=== PATIENT | male | born 2000 | race Caucasian/White ===

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

== ENCOUNTER → 2021-01-28 15:42 | Outpatient (BNVA) | payer BC, SELFPAY | PROVIDERS: Family Provider Family Medicine; PCP Family Medicine; Referring Provider Family Medicine; Visit Provider Dermatology | DX: Z01.89 Encounter for other specified special examinations (principal) | CPT/HCPCS: 87220 ==

== ENCOUNTER 2021-06-07 19:00 | Emergency (ER) | payer OTHER, BC, SELFPAY ==
--- NOTE | 2021-06-07 19:10 | XRR_ITS ---
PROCEDURE INFORMATION: Exam: XR Right Hand Exam date and time: 06/07/2021 7:10 PM Age: 20 years old Clinical indication: Injury or trauma; Other: Cut on RT thumb; Work related; Laceration; Hand; Right; Additional info: Thumb injury TECHNIQUE: Imaging protocol: XR Right hand. Views: 3 or more views. COMPARISON: No relevant prior studies available. FINDINGS: Bones/joints: Normal. Soft tissues: Normal. XR/XR hand RT min 3V* [id number] IMPRESSION: No acute findings.
[2021-06-07 19:30] VITALS: BP 158/80; PULSE 90; RESP 18; TEMP 36.7; O2SAT 100; BMI 28.1
== END 2021-06-07 23:00 | disposition left against medical advice (07) ==
PROVIDERS: Emergency Provider Family Medicine; PCP Family Medicine
DX: Z53.21 Procedure and treatment not carried out due to patient leaving prior to being seen by health care provider (principal)
CPT/HCPCS: 73130

== ENCOUNTER → 2022-05-18 08:29 | Outpatient (BNVA) | payer OTHER, SELFPAY | PROVIDERS: PCP Family Medicine; Visit Provider Clinical Nurse Specialist Adult Health | DX: J02.9 Acute pharyngitis, unspecified (principal) | CPT/HCPCS: 87400; 87880 ==

== ENCOUNTER 2022-06-16 19:57 | Emergency (ER) | payer OTHER, BC, SELFPAY ==
[2022-06-16 19:59] VITALS: BP 162/84; PULSE 160; RESP 28; TEMP 36.6; O2SAT 100; BMI 26.5
--- NOTE | 2022-06-16 20:24 | ECG_ITS ---
[facility] Test Date: 2022-06-16 Pat Name: Codey Kraus Department: Room: Gender: Male Peanut Cleaner: : 2000 Requested By: Reilly Greer Order Number: [id number] Smith MD: Yosvany Cabello M.D. Measurements Intervals [place] Rate: 142 P: 76 MA: 123 QRS: 95 QRSD: 97 T: 62 QT: 280 QTc: 432 Interpretive Statements SINUS TACHYCARDIA, POSSIBLE ATRIAL FLUTTER BORDERLINE RIGHT AXIS DEVIATION [QRS AXIS > 90] No previous ECG available for comparison Electronically Signed On 06-17-2022 23:27:50 MIXING AND MOLDING MACHINE OPERATOR by Yosvany Cabello M.D. [id number]
--- NOTE | 2022-06-16 20:24 | XRR_ITS ---
PROCEDURE INFORMATION: Exam: XR Chest Exam date and time: 06/16/2022 8:34 PM Age: 21 years old Clinical indication: Other: Chest pain/ abdomen pain; Additional info: Cp/ abdomen pain beginning today TECHNIQUE: Imaging protocol: Radiologic exam of the chest. Views: 1 view. COMPARISON: CR XR chest 1V [id number] 03/10/2018 4:01 PM FINDINGS: Lungs: Unremarkable. No consolidation. Pleural spaces: Unremarkable. No pleural effusion. No pneumothorax. Heart/Mediastinum: Unremarkable. No cardiomegaly. Bones/joints: Unremarkable. XR/XR chest 1V portable [id number] IMPRESSION: No acute findings.
--- NOTE | 2022-06-16 20:26 | W.ED.CHESTPA ---
HPI - Chest Pain General: Chief Complaint: Chest Pain Stated Complaint: Chest Pain Time Seen by Provider: 06/16/22 20:12 Source: patient and family Mode of arrival: ambulatory Limitations: no limitations History of Present Illness: This patient was brought to the emergency department accompanied by his mother. He states that he got into a verbal altercation with his father and became quite upset. He states that following that episode he felt like his chest was heavy and he felt like he had numbness in his face and his hands and felt very uncomfortable. He felt like he could not catch his breath at times and then felt very lightheaded and dizzy. He states he his mother attempted to calm him down and he had very minimal improvement and then his symptoms began again very similar to the initial episode and have continued since that time. He is unclear or unaware of the weather he has had a history of prior episodes. He denies street drug use, caffeine use, nicotine use. He denies alcohol use. He he does have a positive family history of hypercholesterolemia and hypertension and he has been told that he has elevated blood pressure in the past. He does not take any current medications. He denies any focal weakness, difficulty with speech etc. MD complaint: chest discomfort Exacerbating factors: stress Associated symptoms: Reports dyspnea; Deny abdominal pain, fever(s), nausea or vomiting Review of Systems Const: Denies: fever(s) or chills ENMT: Denies: throat pain or odynophagia Card: Reports: lightheadedness Resp: Reports: dyspnea; Denies: productive cough, non-productive cough, wheezing or stridor GI: Denies: abdominal pain, nausea or vomiting : Denies: difficulty urinating or dysuria Musc: Denies: neck pain, back pain, extremity pain or extremity swelling Skin/Breast: Denies: rash Neuro: Reports: numbness in extremities and dizziness; Denies: headache(s) or weakness in extremities Psych: Reports: anxiety PFSH ED PFSH: Medical History Collapsed lung hx of: collapsed lung on right History of fracture of rib Social History Smoking and tobacco status: current every day smoker Alcohol intake: never History of recent travel: No Physical Exam Narrative: EXAM NARRATIVE: Healthy-appearing male who answers questions and extreme detail but with somewhat halting speech during that process. He is generally goal-directed in his answers however. Const: COMMON NORMALS: average body habitus, patient oriented x3 and alert GENERAL APPEARANCE: anxious ORIENTATION/CONSCIOUSNESS: Yes awake HENMT: COMMON NORMALS: normocephalic, atraumatic, Normal nasal mucous membranes and turbinates present and moist oral mucous membranes HEAD & SCALP: normocephalic and atraumatic NOSE: Normal nasal mucous membranes and turbinates present Eye: COMMON NORMALS: Equal, round and reactive pupils present and EOMs intact bilaterally PUPIL: Yes Equal, round and reactive pupils present Neck/C-Spine: COMMON NORMALS: full ROM, Thyroid normal and No carotid bruits THYROID: Thyroid normal Chest: COMMONS NORMALS: normal inspection of the chest and normal palpation of entire chest wall Resp: COMMON NORMALS: normal respiratory effort, No retractions, No use of accessory muscles and clear to auscultation bilaterally AUSCULTATION: clear to auscultation bilaterally Cardio: COMMON NORMALS: regular rate, regular rhythm, No murmurs present (Cardio) and Peripheral pulses 2+ throughout RATE: regular rate and tachycardic RHYTHM: regular rhythm PERIPHERAL PULSES: Peripheral pulses 2+ throughout GI: COMMON NORMALS: Normal to inspection, nondistended, normoactive bowel sounds present, Soft to palpation and non-tender PALPATION: Yes Soft to palpation : COMMON NORMALS: Yes no CVA tenderness BLADDER/KIDNEY EXAM: Yes no CVA tenderness Back/Pelvis: COMMON NORMALS: no CVA tenderness, thoracic and lumbar spine normal to inspection, no thoracic nor lumbar tenderness and straight leg raise negative bilaterally Extremity: COMMON NORMALS: normal to inspection, full ROM, capillary refill normal, no calf tenderness and no pedal edema Neuro: COMMON NORMALS: patient oriented x3, moves all extremities, no focal motor deficits and no sensory deficits noted SENSORIUM/ORIENTATION: Yes alert Psych: COMMON NORMALS: mental status grossly normal and Normal thought process present MOOD & AFFECT: Yes anxious THOUGHT PROCESS: Normal thought process present ATTENTION/CONCENTRATION: Yes attention grossly intact INSIGHT: Fair insight present (Psych) Skin: COMMON NORMALS: no rashes or lesions noted, no wounds and turgor normal GENERAL SKIN EXAM: no rashes or lesions noted and turgor normal Course Reevaluation(s): Reevaluation #1: Patient's heart rate is ranging low 90s high 90s to just over 100 in sinus rhythm without any evidence of arrhythmias etc. He subjectively feels at his baseline. We spent some time discussing likely etiology of his presentation and that there is no evidence at this time of any ongoing worrisome condition. Both he and his mother were appreciative of care and is stable to be discharged at this time. Time: 21:55 Vital Signs: Vital signs: Vital Signs Temperature 97.8 F 06/16/22 19:59 Pulse Rate 105 H 06/16/22 21:08 Respiratory Rate 16 06/16/22 21:08 Blood Pressure 117/72 06/16/22 21:08 Pulse Oximetry 99 06/16/22 21:08 Oxygen Delivery Me thod 06/16/22 19:59 MDM - Chest Pain Medical Decision Making This patient presented to our emergency department with narrow complex tachycardia and associated external upset after an argument with his father. He had concomitant carpopedal spasm, tingling in extremities and face in addition to his tachycardia. There was no history or evidence of stimulants, street drugs etc. that might of contributed to his presentation. His clinical examination was nonfocal did not suggest other conditions such as SAMPLE PATTERNMAKER related etc. at the time of his presentation. His work-up in the emergency department was negative for anything to suggest thyroid dysfunction, pneumothorax, arrhythmia etc. He responded well to a single dose of anxiolytic and observation in the emergency department. He is findings are strongly supportive an acute panic attack with associated tachycardia carpopedal spasm etc. This was all discussed in great detail with the patient as well as his mother who was present. We discussed likely precipitating events and possible strategies to reduce stress in the future. Stable at this time for discharge. Lab Data I reviewed the patient's lab results. 06/16/22 20:30 06/16/22 20:30 Radiology Impressions Chest X-Ray 06/16/22 20:24 IMPRESSION: No acute findings. Laboratory Results WBC 11.2 10^3/uL (4.0-10.0) H 06/16/22 20:30 RBC 6.31 10^6/uL (4.1-5.3) H 06/16/22 20:30 Hgb 16.5 g/dL (11.7-16.6) 06/16/22 20:30 Hct 51.8 % (42.0-52.0) 06/16/22 20:30 MCV 82.1 fl (80-94) 06/16/22 20: MCH 26.1 pg (28.0-34.0) L 06/16/22 20: MCHC 31.9 g/dL (30.0-36.0) 06/16/22 20: RDW 15.3 % (12.1-15.1) H 06/16/22 20: Plt Count 284 10^3/cmm (130-400) 06/16/22 20:30 MPV 9.8 fL (7.4-10.4) 06/16/22 20: Neut % (Auto) 59.5 % 06/16/22 20: Lymph % (Auto) 31.6 % 06/16/22 20: [place] % (Auto) 6.2 % 06/16/22 20: Eos % (Auto) 1.8 % 06/16/22 20: Baso % (Auto) 0.6 % 06/16/22 20:30 Neut # (Auto) 6.64 10^3/uL (1.8-7.7) 06/16/22 20: Lymph # (Auto) 3.5 10^3/uL (0.8-4.8) 06/16/22 20: Hunt # (Auto) 0.7 10^3/uL (0.2-0.9) 06/16/22 20:30 Eos # (Auto) 0.2 10^3/uL (0.0-0.8) 06/16/22 20: Baso # (Auto) 0.1 10^3/uL (0.0-0.1) 06/16/22 20:30 Nucleated RBC % (auto) 0 % 06/16/22: Nucleated RBCs # 0.0 /100WBC 06/16/22 20: Sodium 141 mmol/L (136-145) 06/16/22 20:30 Potassium 3.5 mmol/L (3.5-5.1) 06/16/22 20:30 Chloride 103 mmol/L (98-107) 06/16/22 20: Carbon Dioxide 21 mmol/L (22-29) L 06/16/22 20:30 Anion Gap 20.5 (5-19) H 06/16/22 20:30 BUN 12 mg/dL (6-20) 06/16/22 20:30 Creatinine 1.0 mg/dL (0.7-1.2) 06/16/22 20:30 GFR Calculation 94.3 mL/min (90-130) 06/16/22 20:30 Glucose 121 mg/dL (65-115) H 06/16/22 20:30 Calculated Osmolality 293 mOsm/kg (285-295) 06/16/22 20:30 Calcium 9.6 mg/dL (8.5-10.5) 06/16/22 20:30 TSH 3.35 uIU/mL (0.27-4.20) 06/16/22 20:30 EKG Data EKG 1: I personally reviewed and interpreted this EKG as follows: Interpretation: Initial EKG shows a ventricular rate of 142 bpm with a normal MT interval, QRS duration, QTc interval. Normal axes. He has narrow complex tachycardia consistent with likely sinus tachycardia. No acute ischemic changes noted. Discharge Plan Discharge Patient Disposition: Home Clinical Impression: Acute anxiety Condition: Stable Prescriptions: No Action lidocaine HCl 10 mg/mL (1 %) solution 10 mg SUBCUT ONCE Qty: 1 0RF neomycin-polymyxin B-dexameth [Maxitrol] 3.5mg/mL-10,000 unit/mL-0.1 % drops,suspension 2 drp ophthalmic (eye) QID 7 Days Qty: 5 0RF Rx Instructions: Route-Ears to treat Otits Externa Discharge Orders: Discharge ED (Routine); Ordered 06/16/22 Ordered By: Reilly Greer Referrals: Ricky Meléndez MD [Primary Care Provider] - Discharge Diet: Usual diet Discharge Activity: Increase activity as tolerated Patient Instructions: Anxiety (ED), Opioid Safety, Pain Management Activity Restrictions/Additional Instructions: As we discussed while you are in the emergency department your presentation and findings this evening did not represent a life-threatening or other worrisome condition that requires further admission or observation. Most consistent with anxiety reaction with usual symptoms that we see in these kind of conditions. It is important to be aware that emotions can cause many physical symptoms and attempt to remove yourself from any stress provoking situations as soon as possible. If you develop any new concerning persistent or worsening symptoms return to this emergency department for reevaluation. Coding Level of Care Code ED Special Procedures Technologist for Chg Fwd Exam Comprehensive
[2022-06-16] MEDS: LORazepam 2 mg/mL INJ 1 mL 1 MG IVP (20:41)
[2022-06-16 21:01] LABS: Basophils # 0.1 10^3/uL (0.0-0.1); Basophils % 0.6 %; Eosinophils # 0.2 10^3/uL (0.0-0.8); Eosinophils % 1.8 %; Hematocrit 51.8 % (42.0-52.0); Hemoglobin 16.5 g/dL (11.7-16.6); Lymphocytes # 3.5 10^3/uL (0.8-4.8); Lymphocytes % 31.6 %; Mean Corpuscular HGB Conc 31.9 g/dL (30.0-36.0); Mean Corpuscular Hemoglobin 26.1 pg (28.0-34.0); Mean Corpuscular Volume 82.1 fl (80-94); Mean Platelet Volume 9.8 fL (7.4-10.4); Monocytes # 0.7 10^3/uL (0.2-0.9); Monocytes % 6.2 %; Neutrophils # 6.64 10^3/uL (1.8-7.7); Neutrophils % 59.5 %; Nucleated Red Blood Cells % 0 %; Platelet Count 284 10^3/cmm (130-400); Red Blood Count 6.31 10^6/uL (4.1-5.3); Red Cell Distribution Width 15.3 % (12.1-15.1); White Blood Count 11.2 10^3/uL (4.0-10.0)
[2022-06-16 21:06] LABS: Anion Gap 20.5 (5-19); Blood Urea Nitrogen 12 mg/dL (6-20); Calcium 9.6 mg/dL (8.5-10.5); Carbon Dioxide 21 mmol/L (22-29); Chloride 103 mmol/L (98-107); Glomerular Filtration Rate 94.3 mL/min (90-130); Glucose 121 mg/dL (65-115); Osmolality Calculated 293 mOsm/kg (285-295); Potassium 3.5 mmol/L (3.5-5.1); Sodium 141 mmol/L (136-145); Thyroid Stimulating Hormone 3.35 uIU/mL (0.27-4.20)
[2022-06-16 21:08] VITALS: BP 117/72; PULSE 105; RESP 16; O2SAT 99
[2022-06-16 22:08] VITALS: BP 128/84; PULSE 98; RESP 16
== END 2022-06-16 22:10 | disposition home or self-care (01) ==
PROVIDERS: Emergency Provider Emergency Medicine; PCP Family Medicine
DX: F41.9 Anxiety disorder, unspecified (principal)
CPT/HCPCS: 71045; 80048; 84443; 85025; 93005; 96374; 99285; J2060

== ENCOUNTER 2022-10-14 09:06 | Outpatient (CLI) | payer OTHER, BC, SELFPAY ==
--- NOTE | 2022-10-14 09:13 | XR_ITS ---
WS: [id number] Exam: XR thoracic spine 3V* [id number] Date/Time of Exam: 10/14/2022 9:20 AM Reason For Exam: pain T8/T9 Findings: In the AP projection, the thoracic spine is straight. In the lateral projection, the thoracic curve is well maintained. The intervertebral disc spaces are intact. No fractures or anomalies of the tho racic spine are noted. XR/XR thoracic spine 3V* [id number] IMPRESSION: Negative thoracic spine.
== END 2022-10-14 09:07 | disposition home or self-care (01) ==
PROVIDERS: PCP Family Medicine; Visit Provider Family Medicine
DX: M54.6 Pain in thoracic spine (principal)
CPT/HCPCS: 72072

== ENCOUNTER 2023-01-31 17:41 | Emergency (ER) | payer OTHER, BC, SELFPAY ==
[2023-01-31 17:56] VITALS: BP 122/77; PULSE 95; RESP 16; TEMP 36.6; O2SAT 98; BMI 25.1
--- NOTE | 2023-01-31 19:01 | ED_ITS ---
HPI - Abdominal Pain General: Chief Complaint: Abdominal Pain Stated Complaint: abd pain, low back pain Time Seen by Provider: 01/31/23 18:42 History of Present Illness: 23-year-old male presents emergency room with parent due to lower abdominal pain that started few hours ago after returning from work. Patient described the pain as sharp sensation mostly left lower quadrant right lower quadrant rating to his made lower back. Facial pain is 8 out of 10. Patient reveals some dark stool today. Patient denies any hematuria, dysuria, nausea, vomiting, diarrhea or bloody stool. No recent trauma or fall. No numbness or tingling to lower extremity. Is any bowel or bowel dysfunction. Associated Symptoms: Denies coffee ground emesis, dysuria, hematuria, hematemesis, nausea and vomiting Review of Systems General: Reports: 10 or more systems reviewed and unremarkable except in HPI and below GI: Reports: abdominal pain; Denies: nausea, vomiting, hematemesis, coffee ground emesis or dysphagia : Denies: flank pain, difficulty urinating, dysuria, urinary frequency, urinary urgency, urinary hesitancy, urinary dribbling, difficulty starting urination, change in urine stream, nocturia, oliguria, urinary incontinence, hematuria, genital pain or genital lesions PFSH ED PFSH: Medical History Collapsed lung hx of: collapsed lung on right History of fracture of rib Social History Smoking and tobacco status: current every day smoker Alcohol intake: never Substance/Drug Use: never Physical Exam Const: COMMON NORMALS: no acute distress, average body habitus, patient oriented x3, no limitations, healthy appearing, alert and well nourished Chest: COMMONS NORMALS: normal inspection of the chest, normal palpation of entire chest wall, normal inspection of the breasts and normal palpation of the breasts Breast/axilla inspection: Yes normal inspection of the breasts BREAST/AXILLA PALPATION: Yes normal palpation of the breasts Resp: COMMON NORMALS: normal respiratory effort, No retractions, No use of accessory muscles, clear to auscultation bilaterally and percussion normal AUSCULTATION: clear to auscultation bilaterally PERCUSSION: percussion normal GI: COMMON NORMALS: Soft to palpation INSPECTION: Yes normal to inspection, No abdominal wall ecchymosis and No Abdominal wall edema AUSCULTATION: Yes normoactive bowel sounds PALPATION: Yes Soft to palpation, Yes Tenderness to palpation present (GI) Details: LLQ and RLQ, No Hepatosplenomegaly present, No Hepatomegaly present, No Splenomegaly present, No Hernia present and No Pulsatile mass present : COMMON NORMALS: Yes no CVA tenderness BLADDER/KIDNEY EXAM: Yes no CVA tenderness Back/Pelvis: COMMON NORMALS: no CVA tenderness, thoracic and lumbar spine normal to inspection, no thoracic nor lumbar tenderness, thoraco-lumbar ROM normal and straight leg raise negative bilaterally Extremity: COMMON NORMALS: normal to inspection, full ROM, capillary refill normal, no joint enlargement, no clubbing, cyanosis or edema, no calf tenderness and no pedal edema Neuro: COMMON NORMALS: patient oriented x3 SENSORIUM/ORIENTATION: Yes alert Skin: COMMON NORMALS: no rashes or lesions noted, no wounds, turgor normal, no jaundice, no petechiae and no mottling GENERAL SKIN EXAM: no rashes or lesions noted and turgor normal Course Vital Signs: Vital signs: Vital Signs Temperature 97.9 F 01/31/23 17:56 Pulse Rate 72 01/31/23 20:30 Respiratory Rate 16 01/31/23 20:30 Blood Pressure 144/88 01/31/23 20:30 Pulse Oximetry 99 01/31/23 20:30 Oxygen Delivery Me thod Room Air 01/31/23 20:30 MDM - Abdominal Pain Medical Decision Making Patient made comfortable emergency room and had extensive work-up done including CBC, CMP, lipase UA and a CAT scan. I was able to discuss the CT finding and lab work with patient and family. Differential Diagnosis Likely abdominal pain, acute appendicitis, calculus of kidney, constipation, diverticulitis, gastroenteritis, pancreatitis and small bowel obstruction; Unlikely endometriosis Lab Data 01/31/23 19:13 01/31/23 19:13 Labs/Radiology: Radiology Impressions Abdomen/Pelvis CT 01/31/23 20:[address]: [address] evidence of acute intra-abdominal or pelvic pathology. 2. Additional findings, as above. Laboratory Results WBC 9.71 10^3/uL (3.29-11.43) 01/31/23 19:13 RBC 5.48 10^6/uL (3.85-5.65) 01/31/23 19:13 Hgb 15.40 g/dL (11.27-16.99) 01/31/23 19:13 Hct 48.2 % (37-53) 01/31/23 19:13 MCV 88.0 fl (82-101) 01/31/23 19:13 MCH 28.1 pg (27-33) 01/31/23 19:13 MCHC 32.0 g/dL (30-55) 01/31/23 19:13 RDW 13.8 % (12.1-15.1) 01/31/23 19:13 Plt Count 229 10^3/cmm (157-399) 01/31/23 19:13 MPV 9.3 fL (7.4-10.4) 01/31/23 19:13 Neut % (Auto) 71.7 % 01/31/23 19:13 Lymph % (Auto) 18.3 % 01/31/23 19:13 [place] % (Auto) 6.7 % 01/31/23 19:13 Eos % (Auto) 2.4 % 01/31/23 19:13 Baso % (Auto) 0.6 % 01/31/23 19:13 Neut # (Auto) 6.96 10^3/uL (1.8-7.7) 01/31/23 19:13 Lymph # (Auto) 1.8 10^3/uL (0.8-4.8) 01/31/23 19:13 [place] # (Auto) 0.7 10^3/uL (0.2-0.9) 01/31/23 19:13 Eos # (Auto) 0.2 10^3/uL (0.0-0.8) 01/31/23 19:13 Baso # (Auto) 0.1 10^3/uL (0.0-0.1) 01/31/23 19:13 Nucleated RBC % (auto) 0 % 01/31/23 19:13 Nucleated RBCs # 0.0 /100WBC 01/31/23 19:13 Sodium 140 mmol/L (136-145) 01/31/23 19:13 Potassium 3.7 mmol/L (3.5-5.1) 01/31/23 19:13 Chloride 101 mmol/L (98-107) 01/31/23 19:13 Carbon Dioxide 27 mmol/L (22-29) 01/31/23 19:13 Anion Gap 15.7 (5-19) 01/31/23 19:13 BUN 13 mg/dL (6-20) 01/31/23 19:13 Creatinine 1.1 mg/dL (0.7-1.2) 01/31/23 19:13 GFR Calculation 83.7 mL/min (90-130) L 01/31/23 19:13 Glucose 88 mg/dL (65-115) 01/31/23 19:13 Calculated Osmolality 290 mOsm/kg (285-295) 01/31/23 19:13 Calcium 9.0 mg/dL (8.5-10.5) 01/31/23 19:13 Total Bilirubin 0.4 mg/dL (0.15-1.2) 01/31/23 19:13 AST 45 U/L (0-40) H 01/31/23 19:13 ALT 59 U/L (0-41) H 01/31/23 19:13 Alkaline Phosphatase 96 U/L (40-130) 01/31/23 19:13 Total Protein 7.8 g/dL (6.6-8.7) 01/31/23 19:13 Albumin 4.6 g/dL (3.5-5.2) 01/31/23 19:13 Globulin 3.2 g/dL (1.3-4.6) 01/31/23 19:13 Lipase 17 U/L (13-60) 01/31/23 19:13 Urine Color Yellow (Yellow) 01/31/23 19:13 Urine Appearance Clear (CLEAR) 01/31/23 19:13 Urine pH 5 (5-7) 01/31/23 19:13 Ur Specific [place] 1.010 (1.005-1.030) 01/31/23 19:13 Urine Protein Trace (Negative) 01/31/23 19:13 Urine Glucose (UA) Norm (Normal) 01/31/23 19:13 Urine Ketones Negative (Negative) 01/31/23 19:13 Urine Blood Neg (Negative) 01/31/23 19:13 Urine Nitrate Negative (Negative) 01/31/23 19:13 Urine Bilirubin Neg (Negative) 01/31/23 19:13 Urine Urobilinogen Norm mg/dL (Negative) 01/31/23 19:13 Ur Leukocyte Esterase Negative (Negative) 01/31/23 19:13 Urine RBC 0-4 /hpf (0-2) H 01/31/23 19:13 Urine WBC None /hpf (0-5) 01/31/23 19:13 Ur Squamous Epith Cells None /hpf (0-5) 01/31/23 19:13 Amorphous Sediment Not Reportable 01/31/23 19:13 Urine Bacteria Trace /hpf (NONE) 01/31/23 19:13 All radiology interpretation(s) finalized by discharge Discharge Plan Discharge Patient Disposition: Home Clinical Impression: Abdominal pain, Transaminitis Condition: Stable Prescriptions: New tramadol 50 mg tablet 50 mg PO BID PRN (Reason: pain) Qty: 10 0RF promethazine 25 mg tablet 25 mg PO TID PRN (Reason: nausea and vomiting) Qty: 14 0RF No Action lidocaine HCl 10 mg/mL (1 %) solution 10 mg SUBCUT ONCE Qty: 1 0RF diclofenac sodium 75 mg tablet,delayed release (DR/EC) 75 mg PO BID PRN (Reason: pain) Qty: 30 0RF Rx Instructions: Instead of ibuprofen form back pain Discharge Orders: Discharge ED (Routine); Ordered 01/31/23 Ordered By: Abdoulaye Adam Referrals: Jay Sow DO [Physician] - 4-7 days Ricky Meléndez MD [Primary Care Provider] - Discharge Diet: Advance as tolerated Discharge Activity: Resume usual activity Patient Instructions: Abdominal Pain (ED), Opioid Safety, Pain Management Coding Level of Care Code ED Securities Consultant for Chg Jacob
[2023-01-31 19:29] VITALS: BP 117/75; PULSE 70; RESP 18; O2SAT 95
[2023-01-31 19:32] VITALS: RESP 18; O2SAT 100
[2023-01-31] MEDS: sodium chloride 0.9% 1,000 ML 999 ML IV (19:32)
[2023-01-31] MEDS: morphine 4 mg/mL SDV 1 mL IVP (19:32)
[2023-01-31] MEDS: ondansetron 2 mg/ML SDV 2 mL 4 MG IVP (19:32)
[2023-01-31 19:48] LABS: Basophils # 0.1 10^3/uL (0.0-0.1); Basophils % 0.6 %; Eosinophils # 0.2 10^3/uL (0.0-0.8); Eosinophils % 2.4 %; Hematocrit 48.2 % (37-53); Lymphocytes # 1.8 10^3/uL (0.8-4.8); Lymphocytes % 18.3 %; Mean Corpuscular Hemoglobin 28.1 pg (27-33); Mean Platelet Volume 9.3 fL (7.4-10.4); Monocytes # 0.7 10^3/uL (0.2-0.9); Monocytes % 6.7 %; Neutrophils # 6.96 10^3/uL (1.8-7.7); Neutrophils % 71.7 %; Nucleated Red Blood Cells % 0 %; Platelet Count 229 10^3/cmm (157-399); Red Blood Count 5.48 10^6/uL (3.85-5.65); Red Cell Distribution Width 13.8 % (12.1-15.1); White Blood Count 9.71 10^3/uL (3.29-11.43)
[2023-01-31 19:54] LABS: Add Urine Culture? No; Add Urine Microscopic? YES; Bacteria Urine TRACE /hpf; Bilirubin Urine Neg (Negative); Blood Urine Neg (Negative); Glucose Urine UA Norm (Normal); Ketones Urine Negative (Negative); Leukocyte Esterase Urine Negative (Negative); Nitrate Urine Negative (Negative); Protein Urine Trace (Negative); RBC Urine 0-4 /hpf (0-2); Urine Appearance Clear (CLEAR); Urine Color Yellow (Yellow); Urobilinogen Urine Norm (Negative); pH Urine 5 (5-7)
[2023-01-31 20:00] LABS: Alanine Aminotransferase 59 U/L (0-41); Albumin Level 4.6 g/dL (3.5-5.2); Alkaline Phosphatase 96 U/L (40-130); Anion Gap 15.7 (5-19); Aspartate Amino Transferase 45 U/L (0-40); Blood Urea Nitrogen 13 mg/dL (6-20); Carbon Dioxide 27 mmol/L (22-29); Chloride 101 mmol/L (98-107); Globulin 3.2 g/dL (1.3-4.6); Glomerular Filtration Rate 83.7 mL/min (90-130); Glucose 88 mg/dL (65-115); Lipase 17 U/L (13-60); Osmolality Calculated 290 mOsm/kg (285-295); Potassium 3.7 mmol/L (3.5-5.1); Sodium 140 mmol/L (136-145); Total Bilirubin 0.4 mg/dL (0.15-1.2); Total Protein 7.8 g/dL (6.6-8.7)
--- NOTE | 2023-01-31 20:05 | CTR_ITS ---
PROCEDURE INFORMATION: Exam: CT Abdomen And Pelvis With Contrast Exam date and time: 01/31/2023 8:20 PM Age: 22 years old Clinical indication: Abdominal pain; Localized; Lower; Additional info: Severe abd pain TECHNIQUE: Imaging protocol: Computed tomography of the abdomen and pelvis with contrast. Axial, coronal and sagittal reformatted images were created and reviewed. Radiation optimization: All CT scans at this facility use at least one of these dose optimization techniques: automated exposure control; mA and/or kV adjustment per patient size (includes targeted exams where dose is matched to clinical indication); or iterative reconstruction. Contrast material: OMNI 350; Contrast volume: 100 ml; Contrast route: INTRAVENOUS (IV); REPORTING DATA: Count of CT and Cardiac NM exams in prior 12 months: This patient has received 0 known CTs and 0 known cardiac nuclear medicine studies in the 12 months prior to the current study. COMPARISON: CT Chest/Abdomen/Pelvis w IV* 03/10/2018 3:36 PM RADIATION DOSE METRICS: Total DLP (mGy-cm): 628 FINDINGS: Lungs: Mild linear atelectasis and/or scarring in the right lower lobe. Liver: Unremarkable. Gallbladder and bile ducts: No radiodense gallstones. No biliary ductal dilatation. Pancreas: Unremarkable. Spleen: Unremarkable. Adrenal glands: Normal. No mass. Kidneys and ureters: No mass. No radiodense calculi. No hydronephrosis. Stomach and bowel: No bowel wall thickening. No obstruction. No pneumatosis. Appendix: Normal. Intraperitoneal space: No free fluid. No organized fluid collection. No free air. Vasculature: Unremarkable. No aneurysm. Lymph nodes: Small mesenteric lymph nodes, nonspecific in appearance. No pathologically enlarged lymph nodes. Urinary bladder: Unremarkable as visualized. Reproductive: Unremarkable. Bones/joints: No acute osseous abnormality. Soft tissues: Tiny, fat containing umbilical hernia. CT/CT abdomen pelvis w con* [id number] IMPRESSION: 1. No CT evidence of acute intra-abdominal or pelvic pathology. 2. Additional findings, as above.
[2023-01-31] MEDS: iohexol 350 mg/mL 500 mL Btl (per mL) IV (20:27)
[2023-01-31 20:30] VITALS: BP 144/88; PULSE 72; RESP 16; O2SAT 99
== END 2023-01-31 22:17 | disposition home or self-care (01) ==
PROVIDERS: Emergency Provider Family Medicine; PCP Family Medicine
DX: R10.30 Lower abdominal pain, unspecified (principal); R74.01 Elevation of levels of liver transaminase levels; F17.210 Nicotine dependence, cigarettes, uncomplicated
CPT/HCPCS: 74177; 80053; 81001; 83690; 85025; 96361; 96374; 96375; 99285; J2270; J2405; J7030; Q9967

== ENCOUNTER 2023-05-31 19:22 | Emergency (ER) | payer BC, SELFPAY ==
[2023-05-31 19:23] VITALS: BP 138/89; PULSE 103; RESP 16; TEMP 36.8; O2SAT 100; BMI 28.7
--- NOTE | 2023-05-31 19:25 | ECG_ITS ---
[facility] Test Date: 2023-05-31 Pat Name: Codey Kraus Department: Room: Gender: Male Communications Technologist: : 2000 Requested By: Long Levin Order Number: [id number] Smith MD: Yosvany Cabello M.D. Measurements Intervals [place] Rate: 103 P: 67 AL: 142 QRS: 90 QRSD: 96 T: 42 QT: 321 QTc: 421 Interpretive Statements SINUS TACHYCARDIA Compared to ECG 06/16/2022 20:01:30 No significant changes Electronically Signed On 06-01-2023 11:05:10 ENGINEERING DRAWINGS CHECKER by Yosvany Cabello M.D. [id number] f
--- NOTE | 2023-05-31 19:25 | XRR_ITS ---
PROCEDURE INFORMATION: Exam: XR Chest Exam date and time: 05/31/2023 8:51 PM Age: 22 years old Clinical indication: Chest wall pain; Additional info: Cp TECHNIQUE: Imaging protocol: Radiologic exam of the chest. Views: 1 view. COMPARISON: CR XR chest 1V portable [id number] 06/16/2022 8:34 PM FINDINGS: Lungs: Unremarkable. No consolidation. Pleural spaces: Unremarkable. No pleural effusion. No pneumothorax. Heart/Mediastinum: Unremarkable. No cardiomegaly. Bones/joints: Unremarkable. XR/XR chest 1V portable [id number] IMPRESSION: No acute plain radiographic abnormality. No interval change from 06/16/2022.
[2023-05-31] MEDS: sodium chloride 0.9% 1,000 ML 999 ML IV (20:15)
--- NOTE | 2023-05-31 20:16 | ED_ITS ---
HPI - Chest Pain 2 General: Chief Complaint: Chest Pain Stated Complaint: Chest pain dizzy heart racing Time Seen by Provider: 05/31/23 19:25 Source: patient Mode of arrival: ambulatory Limitations: no limitations History of Present Illness: 22-year-old male states that today start ed to have palpitations been having some dizziness along with cold chills as well. States that this started on his way home from work and worsen when he took a shower. He denies any chest pain denies any shortness of breath states he had some relief of the symptoms he denies any worsening proving factors denies any fevers or known sick contacts. Associated symptoms: Reports palpitations; Deny abdominal pain, dyspnea, fever(s), nausea or vomiting Review of Systems 2 Const: Reports: chills; Denies: fever(s), body aches or change in appetite ENMT: Denies: throat pain or dental pain Card: Reports: chest pain and palpitations Resp: Denies: dyspnea GI: Denies: abdominal pain, nausea, vomiting or diarrhea : Denies: dysuria Musc: Denies: neck pain or back pain Skin/Breast: Denies: rash Neuro: Denies: headache(s) or dizziness PFSH ED 2 PFSH: Medical History Collapsed lung hx of: collapsed lung on right History of fracture of rib Social History Smoking and tobacco/nicotine status: current every day tobacco/nicotine user Alcohol intake: never Substance/Drug Use: never Physical Exam 2 Const: COMMON NORMALS: no acute distress, patient oriented x3 and healthy appearing HENMT: COMMON NORMALS: normocephalic and atraumatic HEAD & SCALP: n ormocephalic and atraumatic Eye: COMMON NORMALS: Equal, round and reactive pupils present and EOMs intact bilaterally PUPIL: Yes Equal, round and reactive pupils present Neck/C-Spine: COMMON NORMALS: full ROM and supple Chest: COMMONS NORMALS: normal inspection of the chest and normal palpation of entire chest wall Resp: COMMON NORMALS: normal respiratory effort, No retractions, No use of accessory muscles and clear to auscultation bilaterally AUSCULTATION: clear to auscultation bilaterally Cardio: COMMON NORMALS: regular rate, regular rhythm and No murmurs present (Cardio) RATE: regular rate RHYTHM: regular rhythm GI: COMMON NORMALS: Normal to inspection, nondistended, normoactive bowel sounds present, Soft to palpation, non-tender and no masses PALPATION: Yes Soft to palpation Extremity: COMMON NORMALS: normal to inspection and full ROM Neuro: COMMON NORMALS: patient oriented x3, moves all extremities and no focal motor deficits Psych: COMMON NORMALS: mental status grossly normal, Normal thought process present and cooperative THOUGHT PROCESS: Normal thought process present Skin: COMMON NORMALS: no rashes or lesions noted and no wounds GENERAL SKIN EXAM: no rashes or lesions noted Course 2 Vital Signs: Vital signs: Vital Signs Temperature 98.3 F 05/31/23 19:23 Pulse Rate 85 05/31/23 21:27 Respiratory Rate 16 05/31/23 19:23 Blood Pressure 142/85 05/31/23 21:04 Pulse Oximetry 99 05/31/23 21:27 Oxygen Delivery Me thod Room Air 05/31/23 21:04 MDM - Chest Pain Medical Decision Making Patient presents for chest pains atypical in nature heart rate here is slowed down to 90 troponins normal he had no shortness of breath or chest pain here he has no signs of pulmonary embolism no recent travel no surgery no history of DVT in the family he is stable for discharge she is follow-up with PCP and return if worsening. Medical Records I reviewed the patient's medical records. Lab Data I reviewed the patient's lab results. 05/31/23 20:11 05/31/23 20:11 Laboratory Results WBC 9.34 10^3/uL (3.29-11.43) 05/31/23 20:11 RBC 5.62 10^6/uL (3.85-5.65) 05/31/23 20:11 Hgb 15.60 g/dL (11.27-16.99) 05/31/23 20:11 Hct 48.7 % (37-53) 05/31/23 20:11 MCV 86.7 fl (82-101) 05/31/23 20:11 MCH 27.8 pg (27-33) 05/31/23 20:11 MCHC 32.0 g/dL (30-55) 05/31/23 20:11 RDW 13.5 % (12.1-15.1) 05/31/23 20:11 Plt Count 278 10^3/cmm (157-399) 05/31/23 20:11 MPV 9.2 fL (7.4-10.4) 05/31/23 20:11 Neut % (Auto) 66.1 % 05/31/23 20:11 Lymph % (Auto) 25.1 % 05/31/23 20:11 [place] % (Auto) 6.0 % 05/31/23 20:11 Eos % (Auto) 2.0 % 05/31/23 20:11 Baso % (Auto) 0.5 % 05/31/23 20:11 Neut # (Auto) 6.17 10^3/uL (1.8-7.7) 05/31/23 20:11 Lymph # (Auto) 2.3 10^3/uL (0.8-4.8) 05/31/23 20:11 [place] # (Auto) 0.6 10^3/uL (0.2-0.9) 05/31/23 20:11 Eos # (Auto) 0.2 10^3/uL (0.0-0.8) 05/31/23 20:11 Baso # (Auto) 0.1 10^3/uL (0.0-0.1) 05/31/23 20:11 Nucleated RBC % (auto) 0 % 05/31/23 20:11 Nucleated RBCs # 0.0 /100WBC 05/31/23 20:11 Sodium 141 mmol/L (136-145) 05/31/23 20:11 Potassium 3.8 mmol/L (3.5-5.1) 05/31/23 20:11 Chloride 105 mmol/L (98-107) 05/31/23 20:11 Carbon Dioxide 24 mmol/L (22-29) 05/31/23 20:11 Anion Gap 15.8 (5-19) 05/31/23 20:11 BUN 8 mg/dL (6-20) 05/31/23 20:11 Creatinine 0.8 mg/dL (0.7-1.2) 05/31/23 20:11 GFR Calculation 120.9 mL/min (90-130) 05/31/23 20:11 Glucose 92 mg/dL (65-115) 05/31/23 20:11 Calculated Osmolality 290 mOsm/kg (285-295) 05/31/23 20:11 Calcium 10.2 mg/dL (8.5-10.5) 05/31/23 20:11 Troponin T Baseline < 6 ng/L (0-15) 05/31/23 20:11 All radiology interpretation(s) finalized by discharge EKG Data EKG 1: I personally reviewed and interpreted this EKG as follows: EKG interpretation date: 05/31/23 EKG interpretation time: 19:28 Interpretation: sinus tach hr [address] or t wave abnormalities qrs 96 qtc 380 Discharge Plan Discharge Patient Disposition: Home Clinical Impression: Chest pain Qualifiers: Chest pain type: unspecified Qualified Code(s): R07.9 - Chest pain, unspecified Condition: Stable Prescriptions: No Action lidocaine HCl 10 mg/mL (1 %) solution 10 mg SUBCUT ONCE Qty: 1 0RF diclofenac sodium 75 mg tablet,delayed release (DR/EC) 75 mg PO BID PRN (Reason: pain) Qty: 30 0RF Rx Instructions: Instead of ibuprofen form back pain tramadol 50 mg tablet 50 mg PO BID PRN (Reason: pain) Qty: 10 0RF promethazine 25 mg tablet 25 mg PO TID PRN (Reason: nausea and vomiting) Qty: 14 0RF Discharge Orders: Discharge ED (Routine); Ordered 05/31/23 Ordered By: Long Levin Referrals: Ricky Meléndez MD [Primary Care Provider] - 1-3 days Discharge Diet: Advance as tolerated Discharge Activity: Resume usual activity Patient Instructions: Chest Pain (ED) Coding Level of Care Code ED Doctor Of Dental Surgery for Chg Jacob
[2023-05-31 20:17] LABS: Basophils # 0.1 10^3/uL (0.0-0.1); Basophils % 0.5 %; Eosinophils # 0.2 10^3/uL (0.0-0.8); Hematocrit 48.7 % (37-53); Lymphocytes # 2.3 10^3/uL (0.8-4.8); Lymphocytes % 25.1 %; Mean Corpuscular Hemoglobin 27.8 pg (27-33); Mean Corpuscular Volume 86.7 fl (82-101); Mean Platelet Volume 9.2 fL (7.4-10.4); Monocytes # 0.6 10^3/uL (0.2-0.9); Neutrophils # 6.17 10^3/uL (1.8-7.7); Neutrophils % 66.1 %; Nucleated Red Blood Cells % 0 %; Platelet Count 278 10^3/cmm (157-399); Red Blood Count 5.62 10^6/uL (3.85-5.65); Red Cell Distribution Width 13.5 % (12.1-15.1); White Blood Count 9.34 10^3/uL (3.29-11.43)
[2023-05-31 20:42] LABS: Anion Gap 15.8 (5-19); Blood Urea Nitrogen 8 mg/dL (6-20); Calcium 10.2 mg/dL (8.5-10.5); Carbon Dioxide 24 mmol/L (22-29); Chloride 105 mmol/L (98-107); Creatinine Clr Calc Pharmacy 164.0675; Glomerular Filtration Rate 120.9 mL/min (90-130); Glucose 92 mg/dL (65-115); Osmolality Calculated 290 mOsm/kg (285-295); Potassium 3.8 mmol/L (3.5-5.1); Sodium 141 mmol/L (136-145)
[2023-05-31 21:04] VITALS: BP 142/85; PULSE 93; O2SAT 99
[2023-05-31 21:06] LABS: Troponin(5th) Baseline < 6 ng/L (0-15)
[2023-05-31 21:27] VITALS: PULSE 85; O2SAT 99
== END 2023-05-31 21:29 | disposition home or self-care (01) ==
PROVIDERS: Emergency Provider Emergency Medicine; PCP Family Medicine
DX: R07.89 Other chest pain (principal)
CPT/HCPCS: 71045; 80048; 84484; 85025; 93005; 99285; J7030

== ENCOUNTER 2023-09-28 06:00 | Outpatient (CLI) | payer BC, SELFPAY | END 2023-09-28 23:59 | disposition home or self-care (01) | LOC: SOT 10-05 11:05 | PROVIDERS: PCP Family Medicine; Visit Provider Student in an Organized Health Care Education/Training Program | DX: Z46.89 Encounter for fitting and adjustment of other specified devices (principal); M20.012 Mallet finger of left finger(s) | CPT/HCPCS: 97760; L3935 ==

== ENCOUNTER → 2023-09-28 08:34 | Outpatient (BNVA) | payer BC, SELFPAY | PROVIDERS: PCP Family Medicine; Visit Provider Physician Assistant | DX: S63.633A Sprain of interphalangeal joint of left middle finger, initial encounter (principal); M79.643 Pain in unspecified hand; X58.XXXA Exposure to other specified factors, initial encounter | CPT/HCPCS: 73130 ==

== ENCOUNTER 2023-12-06 16:20 | Inpatient (IN) | payer BC, SELFPAY ==
[2023-12-06] VITALS (12 sets, daily range): BP systolic 109–149; BP diastolic 54–85; PULSE 78–130; RESP 16–23; TEMP 36.7–37.2; O2SAT 96–100
--- NOTE | 2023-12-06 16:40 | W.ED.PSYCHS ---
HPI - Psych General: Chief Complaint: Psychiatric Symptoms Stated Complaint: possible od, si Time Seen by Provider: 12/06/23 16:34 Source: patient Mode of arrival: ambulatory Limitations: no limitations History of Present Illness: 22-year-old male states that he has been with severe depression states today he took a bottle of ibuprofen roughly an hour before arrival and attempt to kill himself. He is unsure having ibuprofen that he had taken. He denies any abdominal pain or vomiting currently. He has had no previous suicide attempts in the past. Associated symptoms: Reports depression and suicidal ideation Review of Systems Const: Denies: fever(s), chills, body aches or change in appetite ENMT: Denies: throat pain or dental pain Card: Denies: chest pain Resp: Denies: dyspnea GI: Denies: abdominal pain, nausea, vomiting or diarrhea Musc: Denies: neck pain or back pain Skin/Breast: Denies: rash Neuro: Denies: headache(s) Psych: Reports: depression and suicidal ideation [facility] ED PFSH: Medical History Collapsed lung hx of: collapsed lung on right History of fracture of rib Social History Smoking and tobacco/nicotine status: never used tobacco/nicotine Second hand smoke exposure: No Alcohol intake: never Substance/Drug Use: never Physical Exam Const: COMMON NORMALS: no acute distress, patient oriented x3 and healthy appearing HENMT: COMMON NORMALS: normocephalic and atraumatic HEAD & SCALP: normocephalic and atraumatic Neck/C-Spine: COMMON NORMALS: full ROM and supple Chest: COMMONS NORMALS: normal inspection of the chest Resp: COMMON NORMALS: normal respiratory effort Cardio: RATE: tachycardic Extremity: COMMON NORMALS: normal to inspection and full ROM Neuro: COMMON NORMALS: patient oriented x3, moves all extremities and no focal motor deficits Psych: COMMON NORMALS: mental status grossly normal, Normal thought process present and cooperative THOUGHT PROCESS: Normal thought process present THOUGHT CONTENT: Yes Suicidality present Skin: COMMON NORMALS: no rashes or lesions noted and no wounds GENERAL SKIN EXAM: no rashes or lesions noted Course Vital Signs: Vital signs: Vital Signs Temperature 99.0 F 12/06/23 16:27 Pulse Rate 111 H 12/06/23 19:00 Respiratory Rate 23 H 12/06/23 17:36 Blood Pressure 143/74 12/06/23 19:00 Pulse Oximetry 97 12/06/23 19:00 Oxygen Delivery Me thod Room Air 12/06/23 19:00 MDM - Psych Medical Decision Making Patient presents here with suicidal ideation with a overdose attempt on ibuprofen patient is medically cleared blood works normal no signs of lethal dose I did speak to the psychiatrist and will admit. Medical Records I reviewed the patient's medical records. Lab Data I reviewed the patient's lab results. 12/06/23 17:48 12/06/23 17:48 Laboratory Results WBC 12.95 10^3/uL (3.29-11.43) H 12/06/23 17:48 RBC 5.32 10^6/uL (3.85-5.65) 12/06/23 17:48 Hgb 14.60 g/dL (11.27-16.99) 12/06/23 17:48 Hct 45.5 % (37-53) 12/06/23 17:48 MCV 85.5 fl (82-101) 12/06/23 17:48 MCH 27.4 pg (27-33) 12/06/23 17:48 MCHC 32.1 g/dL (30-55) 12/06/23 17:48 RDW 13.6 % (12.1-15.1) 12/06/23 17:48 Plt Count 262 10^3/cmm (157-399) 12/06/23 17:48 MPV 9.6 fL (7.4-10.4) 12/06/23 17:48 Neut % (Auto) 85.2 % 12/06/23 17:48 Lymph % (Auto) 8.5 % 12/06/23 17:48 [place] % (Auto) 5.2 % 12/06/23 17:48 Eos % (Auto) 0.2 % 12/06/23 17:48 Baso % (Auto) 0.4 % 12/06/23 17:48 Neut # (Auto) 11.04 10^3/uL (1.8-7.7) H 12/06/23 17:48 Lymph # (Auto) 1.1 10^3/uL (0.8-4.8) 12/06/23 17:48 [place] # (Auto) 0.7 10^3/uL (0.2-0.9) 12/06/23 17:48 Eos # (Auto) 0.0 10^3/uL (0.0-0.8) 12/06/23 17:48 Baso # (Auto) 0.1 10^3/uL (0.0-0.1) 12/06/23 17:48 Nucleated RBC % (auto) 0 % 12/06/23 17:48 Nucleated RBCs # 0.0 /100WBC 12/06/23 17:48 Sodium 142 mmol/L (136-145) 12/06/23 17:48 Potassium 4.0 mmol/L (3.5-5.1) 12/06/23 17:48 Chloride 104 mmol/L (98-107) 12/06/23 17:48 Carbon Dioxide 22 mmol/L (22-29) 12/06/23 17:48 Anion Gap 20.0 (5-19) H 12/06/23 17:48 BUN 11 mg/dL (6-20) 12/06/23 17:48 Creatinine 0.9 mg/dL (0.7-1.2) 12/06/23 17:48 GFR Calculation 105.5 mL/min (90-130) 12/06/23 17:48 Glucose 101 mg/dL (65-115) 12/06/23 17:48 Calculated Osmolality 294 mOsm/kg (285-295) 12/06/23 17:48 Calcium 8.9 mg/dL (8.5-10.5) 12/06/23 17:48 Total Bilirubin 0.3 mg/dL (0.15-1.2) 12/06/23 17:48 AST 20 U/L (0-40) 12/06/23 17:48 ALT 31 U/L (0-41) 12/06/23 17:48 Alkaline Phosphatase 93 U/L (40-130) 12/06/23 17:48 Total Protein 7.2 g/dL (6.6-8.7) 12/06/23 17:48 Albumin 4.7 g/dL (3.5-5.2) 12/06/23 17:48 Globulin 2.5 g/dL (1.3-4.6) 12/06/23 17:48 Salicylates < 0.3 mg/dL (3-10) L 12/06/23 17:48 Urine Opiates Screen Negative ng/mL (Negative) 12/06/23 17:58 Acetaminophen < 5.0 ug/mL (10-30) L 12/06/23 17:48 Ur Barbiturates Screen Negative ng/mL (Negative) 12/06/23 17:58 Ur Phencyclidine Scrn Negative ng/mL (Negative) 12/06/23 17:58 Ur Amphetamines Screen Negative ng/mL (Negative) 12/06/23 17:58 U Benzodiazepines Scrn Negative ng/mL (Negative) 12/06/23 17:58 Urine Cocaine Screen Negative ng/mL (Negative) 12/06/23 17:58 U Marijuana (THC) Screen Negative ng/mL (Negative) 12/06/23 17:58 Ethyl Alcohol < 10 mg/dL (0-10) 12/06/23 17:48 No radiology studies performed this visit EKG Data EKG 1: I personally reviewed and interpreted this EKG as follows: EKG interpretation date: 12/06/23 EKG interpretation time: 16:49 Interpretation: sinus tach hr [address] or t wave abnormalities qrs 94 qtc 373 Discharge Plan Discharge Admit Provider: John Vaughn Condition: Stable Prescriptions: No Action (DME) custom DIP left middle finger splint See Rx Instructions .Route .MEDSUPPLY Qty: 1 0RF Rx Instructions: As directed lidocaine HCl 10 mg/mL (1 %) solution 10 mg SUBCUT ONCE Qty: 1 0RF diclofenac sodium 75 mg tablet,delayed release (DR/EC) 75 mg PO BID PRN (Reason: pain) Qty: 30 0RF Rx Instructions: Instead of ibuprofen form back pain tramadol 50 mg tablet 50 mg PO BID PRN (Reason: pain) Qty: 10 0RF promethazine 25 mg tablet 25 mg PO TID PRN (Reason: nausea and vomiting) Qty: 14 0RF Coding Level of Care Code ED [facility] for [facility]
--- NOTE | 2023-12-06 16:43 | PC.NURSE ---
Called poison control and talked with a pharmacist, based on patient's weight he would be expected to tolerate up to 34,454mg. Peak time is 1-2 hrs, may expect nausea, vomiting, and or abd pain. Can give PPI if needed.
--- NOTE | 2023-12-06 16:49 | ECG_ITS ---
[facility] Test Date: 2023-12-06 Pat Name: Codey Kraus Department: Room: Gender: Male Sales Account Coordinator: : 2000 Requested By: Long Levin Order Number: [id number] Smith MD: Yosvany Cabello M.D. Measurements Intervals [place] Rate: 120 P: 52 SD: 148 QRS: 89 QRSD: 94 T: 43 QT: 302 QTc: 427 Interpretive Statements SINUS TACHYCARDIA Compared to ECG 05/31/2023 19:28:27 No significant changes Electronically Signed On 12-06-2023 17:18:04 CDT by Yosvany Cabello M.D. [email or web address]
[2023-12-06 18:00] LABS: Basophils # 0.1 10^3/uL (0.0-0.1); Basophils % 0.4 %; Eosinophils % 0.2 %; Hematocrit 45.5 % (37-53); Lymphocytes # 1.1 10^3/uL (0.8-4.8); Lymphocytes % 8.5 %; Mean Corpuscular HGB Conc 32.1 g/dL (30-55); Mean Corpuscular Hemoglobin 27.4 pg (27-33); Mean Corpuscular Volume 85.5 fl (82-101); Mean Platelet Volume 9.6 fL (7.4-10.4); Monocytes # 0.7 10^3/uL (0.2-0.9); Monocytes % 5.2 %; Neutrophils # 11.04 10^3/uL (1.8-7.7); Neutrophils % 85.2 %; Nucleated Red Blood Cells % 0 %; Platelet Count 262 10^3/cmm (157-399); Red Blood Count 5.32 10^6/uL (3.85-5.65); Red Cell Distribution Width 13.6 % (12.1-15.1); White Blood Count 12.95 10^3/uL (3.29-11.43)
[2023-12-06 18:18] LABS: Alanine Aminotransferase 31 U/L (0-41); Albumin Level 4.7 g/dL (3.5-5.2); Alkaline Phosphatase 93 U/L (40-130); Aspartate Amino Transferase 20 U/L (0-40); Blood Urea Nitrogen 11 mg/dL (6-20); Calcium 8.9 mg/dL (8.5-10.5); Carbon Dioxide 22 mmol/L (22-29); Chloride 104 mmol/L (98-107); Creatinine Clr Calc Pharmacy 144.1865; Globulin 2.5 g/dL (1.3-4.6); Glomerular Filtration Rate 105.5 mL/min (90-130); Glucose 101 mg/dL (65-115); Osmolality Calculated 294 mOsm/kg (285-295); Sodium 142 mmol/L (136-145); Total Bilirubin 0.3 mg/dL (0.15-1.2); Total Protein 7.2 g/dL (6.6-8.7)
[2023-12-06 18:19] LABS: Acetaminophen < 5.0 ug/mL (10-30); Alcohol Level < 10 mg/dL (0-10); Salicylate < 0.3 mg/dL (3-10)
[2023-12-06 18:19] LABS: Amphetamines Screen Urine Negative (Negative); Barbiturates Screen Urine Negative (Negative); Benzodiazepines Screen Urine Negative (Negative); Cocaine Screen Urine Negative (Negative); Opiate Screen Urine Negative (Negative); PCP Screen Urine Negative (Negative); THC Screen Urine Negative (Negative)
[2023-12-06] MEDS: sodium chloride 0.9% 1,000 ML 999 ML IV ×2 (18:23→18:58)
[2023-12-06] MEDS: LORazepam 2 mg/mL INJ 1 mL 1 MG IVP (18:24)
--- NOTE | 2023-12-06 19:03 | PC.NURSE ---
Patient and family at bedside were educated that patient was on the 96 hour hold and per hospital policy, patient cannot have any further visitors and cannot have phone/belongings at bedside. Patient verbalized understanding without incident.
--- NOTE | 2023-12-06 19:19 | PC.NURSE ---
96 hr rights reviewed with patient @1780 with assistance of [facility] occupational medicine officer Jona. All education reviewed. No questions or concerns verbalized at this time. Patient copy left @bedside with patient.
--- NOTE | 2023-12-06 19:22 | PC.NURSE ---
Patient states to nurse at this time that he does not want Key Blackman to receive any updates on patient status. Patient states that it would be fine if his parents or friends were updated if they called.
--- NOTE | 2023-12-06 20:42 | PC.NURSE ---
Report was called to Shauna CURRAN in NPU; all questions and concerns were addressed at time of report.
--- NOTE | 2023-12-06 21:28 | PC.NURSE ---
Patient's belongings taken home by family per patient.
--- NOTE | 2023-12-06 21:28 | PC.NURSE ---
Patient was transferred via wheelchair to NPU. Patient transferred with all paperwork.
[2023-12-07 06:00] VITALS: BP 108/57; PULSE 84; RESP 15; TEMP 36.5; O2SAT 98
--- NOTE | 2023-12-07 10:53 | P.NPUHP_ITS ---
Providers/Chief Complaint 2 Admitting Physician: John Vaughn MD Primary Care Provider: Ricky Meléndez MD Chief Complaint: possible od, si, consumed whole bottle ibeprophen HPI NPU History of Present Illness Codey Kraus is a 22 year old male who presented to the emergency department with the following report: Chief Complaint: Psychiatric Symptoms Stated Complaint: possible od, si Time Seen by Provider: 12/06/23 16:34 Source: patient Mode of arrival: ambulatory Limitations: no limitations History of Present Illness: 22-year-old male states that he has been with severe depression states today he took a bottle of ibuprofen roughly an hour before arrival and attempt to kill himself. He is unsure having ibuprofen that he had taken. He denies any abdominal pain or vomiting currently. He has had no previous suicide attempts in the past. Associated symptoms: Reports depression and suicidal ideation. He was admitted to the neuropsychiatric unit for definitive treatment of those issues. He is unknown to the inpatient or outpatient psychiatric services here and presents reporting: Chief complaint The patient came to the hospital due to feelings of being ignored and difficulty in expressing himself. He reported taking an overdose of Ibuprofen due to physical pain and emotional distress. He also mentioned issues in his relationship with his girlfriend, feeling unacknowledged and ignored by her. History of the present complaint The patient, born on [birth year], reported feeling ignored and having difficulty expressing himself, a problem he has experienced for a long time. This emotional distress led him to take an overdose of Ibuprofen, which he was taking for back pain. He mentioned that he was in pain at the time of the overdose, but did not specify the nature of this pain. The patient also shared an incident that occurred on a day he described as good at work. He mentioned that his girlfriend, who lives with her parents, did not acknowledge his presence during a doctor's appointment. He felt ignored as she did not communicate with him about the appointment or her condition. He found out about the appointment details from her mother. The patient also expressed concerns about his relationship with his girlfriend. He mentioned that he frequently asks her questions to ensure their relationship is okay, a habit he has developed from past relationships. However, he feels that his girlfriend is annoyed by his questions. The patient is currently taking Ibuprofen for his back pain. He did not mention any other medications or treatments. He did not report any allergies to medication. Social history The patient is currently in a relationship with a woman who is and living with her parents. He reported having a good day at work the previous day. He also mentioned having a tendency to ask questions about the status of his relationships due to past experiences. Meds NPU Home Medications Medication Instructions Recorded Confirmed Last Taken Type No Known Home Medications 12/06/23 12/06/23 Unknown History Allergies Allergy/AdvReac Type Severity Reaction Status Date / Time No Known Allergies Allergy Verified 09/28/23 08:24 laundry detergent Allergy rash Uncoded 09/28/23 08:24 PFSH NPU 2 PFSH: Medical History Collapsed lung hx of: collapsed lung on right History of fracture of rib Social History Smoking and tobacco/nicotine status: never used tobacco/nicotine Second hand smoke exposure: No Alcohol intake: never Substance/Drug Use: never Mental Status Exam 2 MSE Comments: This is an overweight versus obese white male in hospital scrubs with adequate grooming and minimal eye contact. No abnormal movements except for psychomotor retardation. He was cooperative with exam in mild to moderate distress. Speech was decreased rate and volume. Mood described as depressed, affect appeared congruent. Thought process was linear. Thought content: Patient denied current suicidal or homicidal ideation but identified that he did have suicidal intent in his overdose, there were no delusions reported or noted, he denied any auditory or visual hallucinations. The patient exhibited signs of distress and possible depression. He reported feeling ignored and having difficulty expressing himself. He also mentioned taking an overdose of Ibuprofen, indicating potential self-harm tendencies. Attention and concentration appeared intact and memory was mostly reliable but none were formally tested. He is alert and oriented x 3. Insight and judgment appear limited and impulse control impaired. Vitals/I&O/Wt Last Vital Signs Temp 97.7 F 12/07/23 06:00 Pulse 84 12/07/23 06:00 Resp 15 12/07/23 06:00 BP 108/57 12/07/23 06:00 Pulse Ox 98 12/07/23 06:00 O2 Del Method Room Air 12/07/23 06:00 12/06/23 12/07/23 12/07/23 22:59 06:59 14:59 Intake Total 1582.75 / 1582.75 Balance 1582.75 / 1582.75 Weight last 48 hrs Weight 88.451 kg Data NPU 12/06/23 17:48 12/06/23 17:48 A&P Assessment and plan (1) Major depressive disorder, recurrent: (2) Bereavement: (3) Partner relational problem: (4) Anxiety: Plan This is a 22-year-old white male with significant emotional distress, possibly related to his relationship and communication issues. He has shown signs of potential self-harm by overdosing on Ibuprofen. His difficulty in expressing himself and feelings of being ignored led to him making poor choices and feeling like he did not have options. He has never been on psychiatric medication but endorsed an openness for a medication trial for his depression and anxiety. 1.start Prozac 20 mg p.o. daily 2.We will get collateral information 3.Encourage individual, group and milieu therapy 4.Continue q-15 minute check for safety 5.Will evaluate for safety against the 96-hour hold given his suicidal behavior. Involuntary Hold Information 2 96 Hour Hold: 96 Hour Involuntary Admission: Yes 96 Hour Hold Ending Date: 12/12/23 96 Hour Hold Ending Time: 16:45 Attestations NPU 2 Medical Necessity Statement*: Inpatient hospitalization is medically necessary and the clinically appropriate intervention at this time. We will monitor medications and make changes as indicated. Patient will be in the hospital for over two midnights. Likely length of stay is 3-5 days Coding Level of Care Code Acute Code for [facility] Fwd Diagnoses Major depressive disorder, recurrent F33.9 Bereavement Z63.4 Partner relational problem Z63.0 Anxiety F41.9
[2023-12-07 13:49] VITALS: BP 112/59; PULSE 83; RESP 16; TEMP 36.6; O2SAT 99
[2023-12-07 21:20] VITALS: BP 129/78; PULSE 96; RESP 17; TEMP 37; O2SAT 97
[2023-12-07] MEDS: trazodone 50 mg Tablet PO (21:44)
[2023-12-08 06:00] VITALS: BP 106/65; PULSE 80; RESP 18; TEMP 36.8; O2SAT 98
[2023-12-08 14:00] VITALS: BP 120/70; PULSE 105; RESP 16; TEMP 36.9; O2SAT 96
--- NOTE | 2023-12-08 16:45 | P.NPUPN_ITS ---
Subjective NPU 2 Subjective: Patient presented today reporting that things are going better. He reports feeling positive about the medication and his prospects moving forward. He expressed concern about not being discharged by Monday as he wants to not create a worse situation for his job. He reports that they told him that as long as he was there Monday there would be no problems. He denied any side effects of the medication and reports that he is sleeping well. Mental Status Exam 2 MSE Comments: This is an overweight versus obese white male in hospital scrubs with adequate grooming and improved eye contact. No abnormal movements except for psychomotor retardation. He was cooperative with exam in mild distress. Speech was decreased rate and volume. Mood described as better, affect appeared congruent. Thought process was linear. Thought content: Patient denied current suicidal or homicidal ideation but identified that he did have suicidal intent in his overdose, there were no delusions reported or noted, he denied any auditory or visual hallucinations. The patient exhibited signs of distress and possible depression. He reported feeling ignored and having difficulty expressing himself. He also mentioned taking an overdose of Ibuprofen, indicating potential self-harm tendencies. Attention and concentration appeared intact and memory was mostly reliable but none were formally tested. He is alert and oriented x 3. Insight and judgment appear limited and impulse control impaired. Vitals/I&O/Wt Last Vital Signs Temp 98.4 F 12/08/23 14:00 Pulse 105 H 12/08/23 14:00 Resp 16 12/08/23 14:00 BP 120/70 12/08/23 14:00 Pulse Ox 96 12/08/23 14:00 O2 Del Method Room Air 12/08/23 14:00 Data NPU 12/06/23 17:48 12/06/23 17:48 A&P Assessment and plan (1) Major depressive disorder, recurrent: (2) Bereavement: (3) Partner relational problem: (4) Anxiety: Plan This is a 22-year-old white male with significant emotional distress, possibly related to his relationship and communication issues. He has shown signs of potential self-harm by overdosing on Ibuprofen. His difficulty in expressing himself and feelings of being ignored led to him making poor choices and feeling like he did not have options. He has never been on psychiatric medication but endorsed an openness for a medication trial for his depression and anxiety. 1.Started Prozac 20 mg p.o. daily 2.We will get collateral information 3.Encourage individual, group and milieu therapy 4.Continue q-15 minute check for safety 5.Will evaluate for safety against the 96-hour hold given his suicidal behavior. 6. Patient reported a desire to be discharged prior to Monday so that he does not miss work. We discussed the possibility of discharge in the next 48 hours if he continues at his current trajectory. Involuntary Hold Information 2 96 Hour Hold: 96 Hour Involuntary Admission: Yes 96 Hour Hold Ending Date: 12/12/23 96 Hour Hold Ending Time: 16:45 Attestations NPU 2 Medical Necessity Statement*: Inpatient hospitalization is medically necessary and the clinically appropriate intervention at this time. We will monitor medications and make changes as indicated. Likely length of stay is 1-3 days Coding Level of Care Code Acute Code for Chg Fwd Diagnoses Major depressive disorder, recurrent F33.9 Bereavement Z63.4 Partner relational problem Z63.0 Anxiety F41.9
[2023-12-08] MEDS: fluoxetine 20 mg Capsule PO (17:11)
[2023-12-08 20:31] VITALS: BP 113/77; PULSE 72; RESP 18; O2SAT 100
[2023-12-08] MEDS: trazodone 50 mg Tablet PO (22:53)
[2023-12-09 06:00] VITALS: BP 106/67; PULSE 87; RESP 16; O2SAT 97
[2023-12-09] MEDS: fluoxetine 20 mg Capsule PO (08:57)
--- NOTE | 2023-12-09 09:02 | PC.NURSE ---
During assessment, patient stated that he is ready to leave. Patient denies anxiety, depression, SI, HI, and AVH. Patient cooperative during assessment.
[2023-12-09 14:00] VITALS: BP 126/88; PULSE 86; RESP 16; TEMP 37.1; O2SAT 99
[2023-12-09 20:01] VITALS: BP 117/74; PULSE 85; RESP 18; TEMP 36.6; O2SAT 98
[2023-12-09] MEDS: trazodone 50 mg Tablet PO (21:58)
[2023-12-10 06:00] VITALS: BP 124/73; PULSE 106; RESP 17; O2SAT 97
[2023-12-10] MEDS: fluoxetine 20 mg Capsule PO (08:24)
--- NOTE | 2023-12-10 13:10 | W.PM.NPUDCS ---
Diagnoses at Discharge Discharge Diagnosis (1) Major depressive disorder, recurrent: Status: Acute (2) Bereavement: Status: Acute (3) Partner relational problem: Status: Acute (4) Anxiety: Status: Acute Reason for Visit Reason for Visit: possible od, si, consumed whole bottle ibeprophen Brief History: History of Present Illness Codey Kraus is a 22 year old male who presented to the emergency department with the following report: Chief Complaint: Psychiatric Symptoms Stated Complaint: possible od, si Time Seen by Provider: 12/06/23 16:34 Source: patient Mode of arrival: ambulatory Limitations: no limitations History of Present Illness: 22-year-old male states that he has been with severe depression states today he took a bottle of ibuprofen roughly an hour before arrival and attempt to kill himself. He is unsure having ibuprofen that he had taken. He denies any abdominal pain or vomiting currently. He has had no previous suicide attempts in the past. Associated symptoms: Reports depression and suicidal ideation. He was admitted to the neuropsychiatric unit for definitive treatment of those issues. He is unknown to the inpatient or outpatient psychiatric services here and presents reporting: Chief complaint The patient came to the hospital due to feelings of being ignored and difficulty in expressing himself. He reported taking an overdose of Ibuprofen due to physical pain and emotional distress. He also mentioned issues in his relationship with his girlfriend, feeling unacknowledged and ignored by her. History of the present complaint The patient, born on [birth year], reported feeling ignored and having difficulty expressing himself, a problem he has experienced for a long time. This emotional distress led him to take an overdose of Ibuprofen, which he was taking for back pain. He mentioned that he was in pain at the time of the overdose, but did not specify the nature of this pain. The patient also shared an incident that occurred on a day he described as good at work. He mentioned that his girlfriend, who lives with her parents, did not acknowledge his presence during a doctor's appointment. He felt ignored as she did not communicate with him about the appointment or her condition. He found out about the appointment details from her mother. The patient also expressed concerns about his relationship with his girlfriend. He mentioned that he frequently asks her questions to ensure their relationship is okay, a habit he has developed from past relationships. However, he feels that his girlfriend is annoyed by his questions. The patient is currently taking Ibuprofen for his back pain. He did not mention any other medications or treatments. He did not report any allergies to medication. Social history The patient is currently in a relationship with a woman who is and living with her parents. He reported having a good day at work the previous day. He also mentioned having a tendency to ask questions about the status of his relationships due to past experiences. Hospital Course Hospital Course During the hospitalization, the patient had routine laboratory studies which were within normal limits except for a few outliers.? Additionally, there was a general medical evaluation which was also within normal limits and revealed no new acute processes.? At the time of discharge, lethality was denied and psychosis was resolving.? Mood and anxiety were well managed.? The patient endorsed a plan to avoid all drugs of abuse and follow up with the aftercare recommendations of the treatment team.? The patient was evaluated and deemed to be absent credible lethality and had achieved the maximum benefit from an inpatient hospitalization, and so was discharged. ?The patient was started on prozac and titrated up to a dose of 20mg daily to target depression without side effects. Involuntary Hold Information 96 Hour Hold: 96 Hour Involuntary Admission: Yes 96 Hour Hold Ending Date: 12/12/23 96 Hour Hold Ending Time: 16:45 Mental Status Exam MSE Comments: This is an overweight versus obese white male in hospital scrubs with adequate grooming and improved eye contact. No abnormal movements were appreciated other than mild psychomotor retardation. He was cooperative with exam in no acute distress. Speech was decreased rate and volume. Mood described as good. His affect appeared mood congruent and brighter. Thought process was linear. Thought content: Patient denied current suicidal or homicidal ideation.There were no delusions reported or noted, he denied any auditory or visual hallucinations. Attention and concentration appeared intact and memory was mostly reliable but none were formally tested. He is alert and oriented x 3. Insight was improving and judgment appear fair and impulse control was fair at the time of discharge. Discharge Data Studies Completed and Pending: Laboratory Results WBC 12.95 10^3/uL (3. 29-11.43) H 12/06/23 17:48 RBC 5.32 10^6/uL (3.8 5-5.65) 12/06/23 17:48 Hgb 14.60 g/dL (11.27 -16.99) 12/06/23 17:48 Hct 45.5 % (37-53) 12/06/23 17:48 MCV 85.5 fl (82-101) 12/06/23 17:48 MCH 27.4 pg (27-33) 12/06/23 17:48 MCHC 32.1 g/dL (30-55) 12/06/23 17:48 RDW 13.6 % (12.1-15.1 ) 12/06/23 17:48 Plt Count 262 10^3/cmm (157 -399) 12/06/23 17:48 MPV 9.6 fL (7.4-10.4) 12/06/23 17:48 Neut % (Auto) 85.2 % 12/06/23 17:48 Lymph % (Auto) 8.5 % 12/06/23 17:48 [place] % (Auto) 5.2 % 12/06/23 17:48 Eos % (Auto) 0.2 % 12/06/23 17:48 Baso % (Auto) 0.4 % 12/06/23 17:48 Neut # (Auto) 11.04 10^3/uL (1. 8-7.7) H 12/06/23 17:48 Lymph # (Auto) 1.1 10^3/uL (0.8- 4.8) 12/06/23 17:48 [place] # (Auto) 0.7 10^3/uL (0.2- 0.9) 12/06/23 17:48 Eos # (Auto) 0.0 10^3/uL (0.0- 0.8) 12/06/23 17:48 Baso # (Auto) 0.1 10^3/uL (0.0- 0.1) 12/06/23 17:48 Nucleated RBC % (a uto) 0 % 12/06/23 17:48 Nucleated RBCs # 0.0 /100WBC 12/06/23 17:48 Sodium 142 mmol/L (136-1 45) 12/06/23 17:48 Potassium 4.0 mmol/L (3.5-5 .1) 12/06/23 17:48 Chloride 104 mmol/L (98-10 7) 12/06/23 17:48 Carbon Dioxide 22 mmol/L (22-29) 12/06/23 17:48 Anion Gap 20.0 (5-19) H 12/06/23 17:48 BUN 11 mg/dL (6-20) 12/06/23 17:48 Creatinine 0.9 mg/dL (0.7-1. 2) 12/06/23 17:48 GFR Calculation 105.5 mL/min (90- 130) 12/06/23 17:48 Glucose 101 mg/dL (65-115 ) 12/06/23 17:48 Calculated Osmolal ity 294 mOsm/kg (285- 295) 12/06/23 17:48 Calcium 8.9 mg/dL (8.5-10 .5) 12/06/23 17:48 Total Bilirubin 0.3 mg/dL (0.15-1 .2) 12/06/23 17:48 AST 20 U/L (0-40) 12/06/23 17:48 ALT 31 U/L (0-41) 12/06/23 17:48 Alkaline Phosphata se 93 U/L (40-130) 12/06/23 17:48 Total Protein 7.2 g/dL (6.6-8.7 ) 12/06/23 17:48 Albumin 4.7 g/dL (3.5-5.2 ) 12/06/23 17:48 Globulin 2.5 g/dL (1.3-4.6 ) 12/06/23 17:48 Salicylates < 0.3 mg/dL (3-10 ) L 12/06/23 17:48 Urine Opiates Scre en Negative ng/mL (N egative) 12/06/23 17:58 Acetaminophen < 5.0 ug/mL (10-3 0) L 12/06/23 17:48 Ur Barbiturates Sc reen Negative ng/mL (N egative) 12/06/23 17:58 Ur Phencyclidine S crn Negative ng/mL (N egative) 12/06/23 17:58 Ur Amphetamines Sc reen Negative ng/mL (N egative) 12/06/23 17:58 U Benzodiazepines Scrn Negative ng/mL (N egative) 12/06/23 17:58 Urine Cocaine Scre en Negative ng/mL (N egative) 12/06/23 17:58 U Marijuana (THC) Screen Negative ng/mL (N egative) 12/06/23 17:58 Ethyl Alcohol < 10 mg/dL (0-10) 12/06/23 17:48 Vitals: Last Vital Signs Temp 97.9 F 12/09/23 20:01 Pulse 106 H 12/10/23 06:00 Resp 17 12/10/23 06:00 BP 124/73 12/10/23 06:00 Pulse Ox 97 12/10/23 06:00 O2 Del Method Room Air 12/09/23 14:00 Discharge Plan Discharge Patient Disposition: Home Condition: Stable Prescriptions: New fluoxetine 20 mg Capsule 20 mg PO DAILY 30 Days Qty: 30 1RF Discharge Orders: Discharge Order (Routine); Ordered 12/10/23 Ordered By: Ramos Nguyen Referrals: Ricky Meléndez MD [Primary Care Provider] - Discharge Diet: Usual diet Discharge Activity: Resume usual activity Patient Instructions: Fluoxetine (By mouth), Anxiety (DC), Suicide Prevention (DC), Opioid Safety Discharge Attestations NPU Time Spent in Discharge Care*: less than 30 min Specific Discharge Activities: Specific discharge activities: educating patient and documenting/other paperwork Coding Level of Care Code Acute Code for Chg Fwd Diagnoses Major depressive disorder, recurrent F33.9 Bereavement Z63.4 Partner relational problem Z63.0 Anxiety F41.9
[2023-12-10 13:13] VITALS: BP 124/73; PULSE 106; RESP 17; O2SAT 97
--- NOTE | 2023-12-11 05:58 | W.PM.NPUPNS ---
Subjective NPU Subjective: Patient presented today reporting that he is feeling better. Continues to focus on his desire to be discharged sooner rather than later. We discussed our concern about discharge prior to Monday but agreed that given his voluntary status and presentation while in the hospital that we would plan on discharge tomorrow. We discussed that Dr. Nguyen would be here tomorrow and that he would be actually executing the discharge. We discussed needing to work with the social work team on Monday to make sure that he does not fact have appointments though he does have current services in place at the [facility] and he reports that he will reach out for appointments as well. He denied any side effects to the medication. Mental Status Exam MSE Comments: This is an overweight versus obese white male in hospital scrubs with adequate grooming and improved eye contact. No abnormal movements except for psychomotor retardation. He was cooperative with exam in no acute distress. Speech was decreased rate and volume. Mood described as better, affect appeared congruent. Thought process was linear. Thought content: Patient denied current suicidal or homicidal ideation but identified that he did have suicidal intent in his overdose, there were no delusions reported or noted, he denied any auditory or visual hallucinations. Attention and concentration appeared intact and memory was mostly reliable but none were formally tested. He is alert and oriented x 3. Insight and judgment appear limited and impulse control impaired. Vitals/I&O/Wt Last Vital Signs Temp 97.9 F 12/09/23 20:01 Pulse 106 H 12/10/23 13:13 Resp 17 12/10/23 13:13 BP 124/73 12/10/23 13:13 Pulse Ox 97 12/10/23 13:13 O2 Del Method Room Air 12/09/23 14:00 Weight last 48 hrs Weight 86.092 kg Data NPU 12/06/23 17:48 12/06/23 17:48 A&P Assessment and plan (1) Major depressive disorder, recurrent: (2) Bereavement: (3) Partner relational problem: (4) Anxiety: Plan This is a 22-year-old white male with significant emotional distress, possibly related to his relationship and communication issues. He has shown signs of potential self-harm by overdosing on Ibuprofen. His difficulty in expressing himself and feelings of being ignored led to him making poor choices and feeling like he did not have options. He has never been on psychiatric medication but endorsed an openness for a medication trial for his depression and anxiety. 1.Started Prozac 20 mg p.o. daily 2.We will get collateral information 3.Encourage individual, group and milieu therapy 4.Continue q-15 minute check for safety 5.Will evaluate for safety against the 96-hour hold given his suicidal behavior. 6. Patient reported a desire to be discharged prior to Monday so that he does not miss work. Plan for discharge tomorrow. Involuntary Hold Information 96 Hour Hold: 96 Hour Involuntary Admission: Yes 96 Hour Hold Ending Date: 12/12/23 96 Hour Hold Ending Time: 16:45 Attestations NPU Medical Necessity Statement*: Inpatient hospitalization is medically necessary and the clinically appropriate intervention at this time. We will monitor medications and make changes as indicated. Likely length of stay is 1 day. Coding Level of Care Code Acute Code for Chg Fwd Diagnoses Major depressive disorder, recurrent F33.9 Bereavement Z63.4 Partner relational problem Z63.0 Anxiety F41.9
== END 2023-12-10 13:54 | disposition home or self-care (01) | DRG 918 ==
LOC: ER 18:26 → NP 19:25
PROVIDERS: Admitting Provider Psychiatry & Neurology Psychiatry; Emergency Provider Emergency Medicine; PCP Family Medicine; Visit Provider Psychiatry & Neurology Psychiatry
DX: T39.312A Poisoning by propionic acid derivatives, intentional self-harm, initial encounter (principal); F33.9 Major depressive disorder, recurrent, unspecified; Y99.9 Unspecified external cause status; F41.9 Anxiety disorder, unspecified; Z63.0 Problems in relationship with spouse or partner
CPT/HCPCS: 80053; 80306; 80307; 85025; 93005; 96374; 97150; 97165; 99285; J2060; J7030